=== PATIENT | male | born 1970 | race Two or more races ===

== ENCOUNTER 2017-09-30 22:33 | Emergency (ER) | payer OTHER ==
[~2017-09-30] VITALS: Ht 188 cm; Wt 103.0 kg
--- NOTE | 2017-09-30 23:45 | NUR ---
PT BB SELF C/O BODY PAIN, FEVER, CHILLS X 2 DAYS. PT IS AAOX4. PT STATES HE TOOK 650MG TYLENOL AT 1999. PT DENIES N/V/D. SKIN WNL. VSS. NO S/S OF ACUTE DISTRESS NOTED. RESP EVEN AND UNLABORED. PT PLACED ON MONITOR AND POX. PT SAFETY AND COMFORT MEASURES IN PLACE.
[2017-09-30 23:58] LABS: BASOPHILS % (AUTO) 0.7 % (0.0-2.0); EOSINOPHILS % (AUTO) 0.4 % (0.0-6.0); HEMATOCRIT 43 % (39-51); HEMOGLOBIN 14.8 g/dL (13.5-17.5); LYMPHOCYTES # (AUTO) 0.5 /CMM (0.8-4.8); LYMPHOCYTES % (AUTO) 16.7 % (20.0-44.0); MEAN CORPUSCULAR HGB CONC 35 g/dl (31.0-36.0); MEAN CORPUSCULAR VOLUME 88 fL (80-96); MONOCYTES # (AUTO) 0.3 /CMM (0.1-1.30); MONOCYTES % (AUTO) 8.5 % (2.0-12.0); NEUTROPHILS # (AUTO) 2.3 /CMM (1.8-8.9); NEUTROPHILS % (AUTO) 73.7 % (43.0-81.0); PLATELET COUNT (AUTO) 135 /CMM (150-450); RDW COEFFICIENT OF VARIATION 13.1 (11.5-15.0); RED BLOOD CELL COUNT(AUTO) 4.85 MIL/uL (4.5-6.0); WHITE BLOOD COUNT (AUTO) 3.1 K/uL (4.3-11.0)
[2017-09-30] MEDS ORDERED: KETOROLAC TROMETHAMINE 15 MG/ML VIAL ONE (23:58)
[2017-09-30] MEDS ORDERED: ONDANSETRON HCL/PF 4 MG/2 ML VIAL ONE (23:59)
[2017-10-01] MEDS ORDERED: IV NS 0.9% 1,000 ML BAG IV ONE
[2017-10-01] MEDS ORDERED: KETOROLAC TROMETHAMINE INJ 30 MG/ML VIAL IV ONE
[2017-10-01] MEDS ORDERED: ONDANSETRON HCL/PF 4 MG/2 ML VIAL IVP ONE
[2017-10-01 00:13] LABS: INR 0.92 (0.87-1.13)
[2017-10-01 00:19] LABS: CALCIUM, SERUM 8.6 mg/dL (8.5-10.1); CARBON DIOXIDE 29 mmol/L (21-32); CHLORIDE 100 mmol/L (98-107); CREATININE 1.1 mg/dL (0.6-1.3); GLUCOSE 216 mg/dL (74-106); SODIUM SERUM 135 mmol/L (136-145); UREA NITROGEN, BLOOD 17 mg/dL (7-18)
[2017-10-01 00:24] LABS: ALANINE AMINOTRANSFERASE 143 U/L (12-78); ALBUMIN 3.9 g/dL (3.4-5.0); ALKALINE PHOSPHATASE 55 U/L (46-116); ASPARTATE AMINOTRANSFERASE 50 U/L (15-37); BILIRUBIN,DIRECT 0.1 mg/dL (0.0-0.2); BILIRUBIN,TOTAL 0.6 mg/dL (0.2-1.0); LIPASE 207 U/L (73-393); TOTAL PROTEIN, SERUM 7.8 g/dL (6.4-8.2)
[2017-10-01 00:27] LABS: TROPONIN I < 0.017 ng/mL (0.00-0.056)
[2017-10-01 00:43] LABS: APPEARANCE,URINE CLEAR (CLEAR); BILIRUBIN,URINE NEGATIVE (NEGATIVE); BLOOD, URINE NEGATIVE Ery/uL (NEGATIVE); COLOR,URINE YELLOW (YELLOW); KETONES,URINE NEGATIVE (NEGATIVE); LEUKOCYTE ESTERASE ,URINE NEGATIVE (NEGATIVE); NITRITE, URINE NEGATIVE (NEGATIVE); PH,URINE 5.5 (5.0-8.0); PROTEIN,URINE 1+ mg/dl (NEGATIVE); UGLUCOSE 1+ mg/dL (NEGATIVE); UROBILINOGEN,URINE 0.2 EU/dL (0.2)
[2017-10-01 00:54] LABS: BACTERIA,URINE None seen /HPF (None Seen); RBC,URINE NONE SEEN /HPF (0-2); SQUAMOUS EPITHELIAL CELL,UR Few /HPF (None Seen); WBC,URINE 0-2 /HPF (0-3)
[2017-10-01 01:49] VITALS: BP 119/70
--- NOTE | 2017-10-01 01:51 | NUR ---
Patient discharged to home in stable condition. Written and verbal after care instructions given. Patient verbalizes understanding of instruction.IV removed. Catheter intact and site benign. Pressure and 4x4 applied to site. No bleeding noted. PT ambulatory with a steady gait VITAL SIGNS WITHIN NORMAL LIMITS.
== END 2017-10-01 01:50 | disposition home or self-care (01) ==
LOC: ER 22:41
DX: R50.9 Fever, unspecified (principal); R10.9 Unspecified abdominal pain; E11.9 Type 2 diabetes mellitus without complications
CPT/HCPCS: 36415; 74176; 80048; 80076; 81001; 82010; 82962; 83690; 84484; 85025; 85730; 93005; 96361; 96374; 96375; 99285; A4606; J1885; J2405; J7030; Z7610; 81000-TC

== ENCOUNTER 2019-05-17 11:49 | Emergency (ER) | payer OTHER ==
[~2019-05-17] VITALS: Ht 188 cm; Wt 97.5 kg
[2019-05-17 11:59] VITALS: BP 144/87
[2019-05-17] MEDS ORDERED: LIDOCAINE 1% INJ 50 ML MDV IJ ONE (12:14)
[2019-05-17] MEDS ORDERED: IBUPROFEN 600 MG TABLET PO ONE ×2 (12:30→12:39)
== END 2019-05-17 14:43 | disposition home or self-care (01) ==
LOC: ER 11:51
DX: L03.012 Cellulitis of left finger (principal); J98.11 Atelectasis; R07.81 Pleurodynia; E11.9 Type 2 diabetes mellitus without complications; Z60.2 Problems related to living alone
CPT/HCPCS: 10060; 71045; 71100; 99283; A6403 ×2; J3490